=== PATIENT | female | born 1995 | race Caucasian/White ===

== ENCOUNTER 2023-11-15 08:15 | Inpatient (IN) | payer OTHER ==
[2023-11-15] MEDS ORDERED: DINOPROSTONE 10 MG VAGINAL SUPPOSITORY VG ONE (08:47)
[2023-11-15 09:09] VITALS: BMI 37.8
[2023-11-15] MEDS ORDERED: MISOPROSTOL 25 MCG TABLET (COMPOUNDED BY PHARMACY) BUC SCH (09:15)
[2023-11-15] MEDS: ELECTROLYTE-148 SOLN 1,000 ML IV SCH (09:20)
[2023-11-15] MEDS: MISOPROSTOL 25 MCG TABLET (COMPOUNDED BY PHARMACY) PV ONE (09:20)
[2023-11-15] MEDS: AMPICILLIN - 2 GM in SODIUM CHLORIDE 100 ML IVPB ONE (09:30)
[2023-11-15] MEDS ORDERED: AMPICILLIN SODIUM 2 GM VIAL ONE (09:36)
[2023-11-15 09:49] LABS: BASO % 0.4 % (0-2.0); EOS % 2.1 % (0-4.5); HEMOGLOBIN 12.9 GM/dL (10.7-15.3); LYMPH % 23.5 % (8-40); MCH 28.8 pg (25.7-33.7); MCHC 33.1 g/dl (32.0-36.0); MEAN CELL VOLUME 87.1 fl (80-96); MONO % 5.3 % (3.8-10.2); NEUT % 68.7 % (42.8-82.8); PLATELET COUNT 234 10^3/uL (134-434); RBC 4.48 M/mm3 (3.60-5.2); RDW 13.3 % (11.6-15.6); WHITE BLOOD COUNT 11.8 K/mm3 (4.0-10.0)
[2023-11-15 10:01] LABS: INR 0.92 (0.83-1.09); PROTHROMBIN TIME (PATIENT) 10.7 SEC (9.7-13.0)
[2023-11-15 10:04] LABS: ACTIVATED PTT 27.7 SECONDS (25.2-36.5)
[2023-11-15 10:14] LABS: POTASSIUM 3.4 mmol/L (3.5-5.1)
[2023-11-15 10:15] LABS: BLOOD UREA NITROGEN 11.6 mg/dL (7-18); CALCIUM 9.1 mg/dL (8.5-10.1)
[2023-11-15 10:19] LABS: CREATININE 0.5 mg/dL (0.55-1.3)
[2023-11-15] MEDS ORDERED: hydrALAZINE HCL 20 MG/ML VIAL IVPUSH PRN (10:57)
[2023-11-15 11:12] LABS: HIV INTERPRETATION NEGATIVE (NEGATIVE)
[2023-11-15] MEDS ORDERED: LABETALOL HCL 20 MG/4 ML VIAL IVPUSH PRN ×2 (11:30)
[2023-11-15] MEDS ORDERED: MISOPROSTOL 25 MCG TABLET (COMPOUNDED BY PHARMACY) BUC ONE (11:30)
[2023-11-15] MEDS ORDERED: AMPICILLIN SODIUM 1 GM VIAL ONE ×3 (13:14→21:47)
[2023-11-15] MEDS: MISOPROSTOL 25 MCG TABLET (COMPOUNDED BY PHARMACY) BUC ONE ×2 (13:25→17:10)
[2023-11-15] MEDS: AMPICILLIN - 1 GM in SODIUM CHLORIDE 100 ML IVPB SCH (13:30)
[2023-11-15] MEDS: DINOPROSTONE 10 MG VAGINAL SUPPOSITORY VG ONE (19:30)
[2023-11-15] MEDS ORDERED: SODIUM CHLORIDE 100 ML IVPB ONE (21:47)
[2023-11-16] MEDS: OXYTOCIN 30 UNITS in 0.9% NS 30 UNIT/500 ML INFUS.BAG IVPB SCH (05:35)
[2023-11-16] MEDS: LABETALOL HCL 20 MG/4 ML VIAL IVPUSH ONE (06:23)
[2023-11-16] MEDS ORDERED: BUTORPHANOL TARTRATE 2 MG/ML VIAL ONE ×2 (10:36→10:39)
[2023-11-16] MEDS ORDERED: PROMETHAZINE HCL 25 MG/1 ML VIAL ONE (10:36)
[2023-11-16] MEDS: BUTORPHANOL TARTRATE 1 MG/ML VIAL IVPB PRN (10:46)
[2023-11-16] MEDS: PROMETHAZINE HCL 25 MG/1 ML VIAL IVPB ONE (10:46)
[2023-11-16] MEDS ORDERED: OXYTOCIN 30 UNITS in 0.9% NS 30 UNIT/500 ML INFUS.BAG IVPB ONE (14:35)
[2023-11-16] MEDS: CITRIC ACID/SODIUM CITRATE 30 ML UNIT-DOSE CUP PO ONE (15:25)
[2023-11-16] MEDS: ELECTROLYTE-148 SOLN 500 ML IV SCH (15:37)
[2023-11-16] MEDS ORDERED: BENZOCAINE 20% 57 GM BOTTLE TP PRN (15:38)
[2023-11-16] MEDS ORDERED: METHYLERGONOVINE MALEATE 0.2 MG/1 ML AMP IM PRN (15:38)
[2023-11-16] MEDS ORDERED: WITCH HAZEL 50% (TUCKS) 40 PAD/JAR PAD TP PRN (15:38)
[2023-11-16] MEDS ORDERED: ACETAMINOPHEN 325 MG TABLET (FP) PO PRN ×2 (15:38→16:05)
[2023-11-16] MEDS ORDERED: BENZOCAINE 28 GM HEMORRHOIDAL OINTMENT TP PRN (15:38)
[2023-11-16] MEDS ORDERED: IBUPROFEN 600 MG TABLET (FP) PO PRN (16:05)
[2023-11-16] MEDS ORDERED: morphine SULFATE/PF 1 MG/2 ML (2cc Syringe - QUVA) EP ONE (16:05)
[2023-11-16] MEDS ORDERED: ONDANSETRON 4 MG/2 ML VIAL IVPUSH PRN (16:05)
[2023-11-16] MEDS ORDERED: ceFAZolin SODIUM 1 GM VIAL ONE (16:11)
[2023-11-16] MEDS ORDERED: SODIUM CHLORIDE 0.9% P/F 10 ML VIAL IJ ONE (16:11)
[2023-11-16] MEDS ORDERED: PHENYLEPHRINE HCL 10 MG/1 ML SINGLE DOSE VIAL ONE (16:24)
[2023-11-16] MEDS ORDERED: OXYTOCIN 10 UNITS/ML VIAL ONE ×2 (16:42→16:59)
[2023-11-16] MEDS ORDERED: ONDANSETRON 4 MG/2 ML VIAL ONE (16:42)
[2023-11-16] MEDS ORDERED: OXYTOCIN 20 UNITS in 0.9% NS 20 UNIT/1,000 ML INFUS.BAG IV ONE (17:50)
[2023-11-16] MEDS: OXYTOCIN 20 UNITS in 0.9% NS 20 UNIT/1,000 ML INFUS.BAG IV SCH (18:00)
[2023-11-16 18:01] LABS: CORD BASE EXCESS -4.4 mmol/L (0-2); CORD HCO3 22.2 mmHg (20-29); CORD PCO2 46.2 mmHg (30-78); CORD pH 7.3 (7.14-7.44)
[2023-11-16 18:03] LABS: CORD BASE EXCESS -3.6 mmol/L (0-2); CORD HCO3 21.6 mmHg (20-29); CORD PCO2 39.8 mmHg (30-78); CORD pH 7.352 (7.14-7.44)
[2023-11-16] MEDS: FERROUS SO4 325 MG TABLET (FP) PO SCH (22:25)
[2023-11-17] MEDS ORDERED: oxyCODONE HCL 5 MG TABLET PO PRN ×2 (03:39)
[2023-11-17] MEDS: SIMETHICONE 80 MG TAB.CHEW (FP) PO PRN (04:41)
[2023-11-17] MEDS: ACETAMINOPHEN 1000 MG/100 ML BAG IVPB PRN (04:43)
[2023-11-17 07:13] LABS: BASO % 0.3 % (0-2.0); EOS % 2.3 % (0-4.5); HEMATOCRIT 35.2 % (32.4-45.2); HEMOGLOBIN 11.6 GM/dL (10.7-15.3); MCH 28.7 pg (25.7-33.7); MCHC 33.1 g/dl (32.0-36.0); MEAN CELL VOLUME 86.6 fl (80-96); MEAN PLT VOLUME 7.9 fl (7.5-11.1); MONO % 8.3 % (3.8-10.2); NEUT % 70.1 % (42.8-82.8); PLATELET COUNT 212 10^3/uL (134-434); RBC 4.06 M/mm3 (3.60-5.2); RDW 13.4 % (11.6-15.6)
[2023-11-17] MEDS: IBUPROFEN 600 MG TABLET (FP) PO PRN (07:39)
[2023-11-17] MEDS: PRENATAL VITAMINS W/ FOLIC ACID TABLET (FP) PO SCH (09:21)
[2023-11-17] MEDS ORDERED: BISACODYL 10 MG SUPP.RECT RC PRN (15:39)
[2023-11-17] MEDS: ELECTROLYTE-148 SOLN 1,000 ML IV SCH (17:01)
[2023-11-17] MEDS: SENNOSIDES/DOCUSATE COMBO (SENNA PLUS) TABLET (UD) PO PRN (21:14)
[2023-11-19 08:41] LABS: BASO % 0.4 % (0-2.0); EOS % 4.3 % (0-4.5); HEMATOCRIT 38.4 % (32.4-45.2); HEMOGLOBIN 12.6 GM/dL (10.7-15.3); LYMPH % 22.4 % (8-40); MCH 28.9 pg (25.7-33.7); MCHC 32.7 g/dl (32.0-36.0); MEAN CELL VOLUME 88.5 fl (80-96); MEAN PLT VOLUME 8.3 fl (7.5-11.1); MONO % 6.9 % (3.8-10.2); PLATELET COUNT 233 10^3/uL (134-434); RBC 4.35 M/mm3 (3.60-5.2); RDW 13.4 % (11.6-15.6); WHITE BLOOD COUNT 13.8 K/mm3 (4.0-10.0)
[2023-11-19 12:14] VITALS: BP 132/84; PULSE 76; RESP 16; TEMP 98.3
== END 2023-11-19 11:15 | disposition home or self-care (01) | DRG 540 ==
LOC: JLDR 08:15 → J3W 11-16 19:58
PROVIDERS: ADMIT Obstetrics & Gynecology; ATTEND Obstetrics & Gynecology
PROC: 10D00Z1 Extraction of Products of Conception, Low, Open Approach (ICD-10-PCS; principal; 2023-11-17)
DX: O36.5930 Maternal care for other known or suspected poor fetal growth, third trimester, not applicable or unspecified (principal); O13.4 Gestational [pregnancy-induced] hypertension without significant proteinuria, complicating childbirth; O61.9 Failed induction of labor, unspecified; Z3A.38 38 weeks gestation of pregnancy; Z37.0 Single live birth
CPT/HCPCS: 36415; 36600; 80048; 82803; 85025; 85610; 85730; 86780; 86850; 86900; 86901; 87389; 88305-TC; 88307-TC; J0131